=== PATIENT | female | born 1990 | race Caucasian/White ===

== ENCOUNTER 2019-07-31 14:53 | Emergency (ER) | payer SELFPAY ==
[2019-07-31 14:56] VITALS: BP 160/86; PULSE 112; RESP 18; TEMP 36.6; O2SAT 97; BMI 51.7
--- NOTE | 2019-07-31 15:04 | ED_ITS ---
Entered by Jil Telles, acting as scribe for Raissa Simpson HPI - Abdominal Pain General: Chief Complaint: Abdominal Pain Stated Complaint: ABD PAIN Time Seen by Provider: 07/31/19 15:04 Source: patient Mode of arrival: ambulatory Limitations: no limitations History of Present Illness: HPI narrative: 29 yo Female presents to ED with complaint of upper abdominal pain. Pt states that the pain started on the right side of her abdomen and shot across to the left side and into her chest. Pt states that she was eating pizza when this pain started and she is now na useated. Pt states that she has had episodes like this in the past but not consistently. Pt states she isn't really having the pain anymore but she has nausea. MD elicited complaint: abdominal pain Pertinent past history: none Onset (ago): hour(s) Pain Consistency: intermittent and now resolved Location: RUQ Pain scale (0-10): 2 Quality: sharp Radiation: LUQ and chest Migration to: no migration Exacerbating factors: eating Associated Symptoms: Reports nausea; Denies chills, constipation, diarrhea, dysuria, fever(s), hematuria, syncope and vomiting Review of Systems General: Reports: other (negative unless marked) Const: Denies: fever or chills Eyes: Denies: change in vision or blurry vision ENMT: Denies: throat pain, painful swallowing, hoarseness, ear pain, ear discharge, Change in hearing or nasal discharge Card: Denies: chest pain, palpitations, irregular heart rhythm, syncope, pre- syncope, shortness of breath on exertion or shortness of breath when lying down Resp: Denies: shortness of breath, productive cough, non-productive cough, wheezing, coughing up blood or chest congestion GI: Reports: abdominal pain and nausea; Denies: vomiting, diarrhea or constipation : Denies: painful urination or blood in urine Musc: Denies: neck pain, back pain, extremity pain, extremity swelling, joint pain, joint swelling, joint warmth or joint stiffness Skin/Breast: Denies: rash, skin tenderness or yellow skin Neuro: Denies: headache, numbness in extremities, weakness in extremities, changes in sensation, lack of coordination, difficulty walking, dizziness, vertigo or confusion Endo: Denies: excessive thirst, tired all the time, cold intolerance, excessive sweating, flushing or hot flashes Noah/Lymph: Denies: easy bruising, easy bleeding, petechiae or enlarged lymph nodes All/Imm: Denies: hives, throat swelling, tongue swelling, facial swelling or acute wheezing PFSH ED PFSH: Social History Smoking and tobacco status: never smoked Physical Exam Const: COMMON NORMALS: no apparent distress, oriented x3, no limitations, healthy appearing and well nourished EXAM LIMITATIONS: no altered mental status GENERAL APPEARANCE: cooperative, well kempt and well developed NUTRITIONAL APPEARANCE: obese morbidly obese ORIENTATION/CONSCIOUSNESS: Yes awake HENMT: COMMON NORMALS: normocephalic, head/scalp atraumatic, hearing grossly normal bilaterally, external ears normal, EAC's normal, external nose normal and moist oral mucous membranes HEAD & SCALP: normal to inspection, normocephalic and atraumatic FACE & SINUS: normal facial exam and face symmetric NOSE: external nose normal and nares normal EXTERNAL EAR: Yes external ears normal EXTERNAL AUDITORY CANAL: EAC's normal MOUTH: oral and palatal mucosa normal and tongue normal Eye: COMMON NORMALS: PERRL, EOMs intact bilaterally, conjunctivae normal and no scleral icterus GENERAL EYE: normal appearance of both eyes and normal light reflex CONJUNCTIVA: Yes conjunctivae normal SCLERA: sclerae normal CORNEA: Yes corneas normal PUPIL: Yes PERRL DIRECT OPHTHALMOSCOPY: Yes normal light reflex Neck/C-Spine: COMMON NORMALS: full ROM, no lymphadenopathy, supple, no meningeal signs and no JVD GENERAL: Yes normal visual inspection and Yes trachea midline CERVICAL SPINE: Yes cervical ROM normal Chest: COMMONS NORMALS: inspection of chest normal and palpation of chest normal Resp: COMMON NORMALS: normal respiratory effort, no retractions, no use of accessory muscles and clear to auscultation bilaterally EFFORT & INSPECTION: Yes able to speak in complete sentences AUSCULTATION: clear to auscultation bilaterally Cardio: COMMON NORMALS: no JVD, regular rate, regular rhythm, S1 normal heart sound, S2 normal heart sound, no gallops, no clicks, no murmurs and no rub JUGULAR VENOUS DISTENTION: no JVD RATE: regular rate RHYTHM: regular rhythm HEART SOUNDS: S1 normal and S2 normal GI: COMMON NORMALS: soft to palpation, non-tender, no hepatosplenomegaly and no masses INSPECTION: Yes normal to inspection PALPATION: Yes soft and Yes no hepatosplenomegaly : COMMON NORMALS: Yes no CVA tenderness BLADDER/KIDNEY EXAM: Yes no CVA tenderness Back/Pelvis: COMMON NORMALS: no CVA tenderness, thoracic and lumbar spine normal to inspection, no thoracic nor lumbar tenderness and thoraco-lumbar ROM normal Extremity: COMMON NORMALS: normal to inspection, full ROM, normal capillary refill, no joint enlargement, no clubbing, cyanosis or edema and no calf tenderness Neuro: COMMON NORMALS: oriented x3, CN's II-XII intact bilaterally, moves all extremities, no focal motor deficits and no sensory deficits noted MENINGEAL SIGNS: Yes no meningeal signs Psych: COMMON NORMALS: mental status grossly normal, thought process normal, cooperative, affect normal, speech normal and activity/motor behavior normal APPEARANCE: Yes well kempt SPEECH: Yes normal speech THOUGHT PROCESS: normal thought process Skin: COMMON NORMALS: no rashes or lesions noted, skin turgor normal, no jaundice, no petechiae and no mottling GENERAL SKIN EXAM: no rashes or lesions noted and turgor normal Course Vital Signs: Vital signs: Vital Signs Temperature 97.8 F 07/31/19 14:56 Pulse Rate 85 07/31/19 17:45 Respiratory Rate 20 H 07/31/19 17:45 Blood Pressure 145/87 07/31/19 17:45 Pulse Oximetry 97 07/31/19 17:45 MDM - Abdominal Pain MDM Narrative: Medical decision making narrative: Anita is a nice 29-year-old female who comes in complaining of right and left upper quadrant pain after eat ing. She has gallstones and a fatty liver but her ultrasound is otherwise unremarkable. I believe this is likely biliary colic. Patient symptoms have resolved and she wants to go home. Her urine does have blood in it but she is on her menses. I will go and cover for UTI although I think this is unlikely. I see no evidence of kidney stone as she has no back or flank pain that radiates to the groin. Patient agrees to return should her symptoms change or worsen otherwise she wants to follow-up with Dr. Sewell or another surgeon as an outpatient for further evaluation and possible cholecystectomy. Lab Data: Labs: Lab Results 07/31/19 07/31/19 07/31/19 Range/Units 15:26 15:26 15:26 WBC 10.1 H (4.0-10.0) 10^3/ uL RBC 5.24 (4.1-5.3) 10^6/u L Hgb 13.5 (11.5-15.3) g/dL Hct 44.0 (37.0-47.0) % MCV 84.0 (81-99) fL MCH 25.8 L (28.0-34.0) pg MCHC 30.7 (30.0-36.0) g/dL RDW 14.8 (12.1-15.1) % Plt Count 280 (130-400) 10^3/c mm MPV 9.9 (7.4-10.4) fL Neut % (Auto) 78.1 % Lymph % (Auto) 13.3 % [place] % (Auto) 6.7 % Eos % (Auto) 1.0 % Baso % (Auto) 0.4 % Neut # (Auto) 7.9 H (1.8-7.7) 10^3/u L Lymph # (Auto) 1.3 (0.8-4.8) 10^3/u L [place] # (Auto) 0.7 (0.2-0.9) 10^3/u L Eos # (Auto) 0.1 (0.0-0.8) 10^3/u L Baso # (Auto) 0.0 (0.0-0.1) 10^3/u L Nucleated RBC % (a uto) 0 % Nucleated RBCs # 0.0 /100WBC Sodium 137 (136-145) mmol/L Potassium 4.0 (3.5-5.1) mmol/L Chloride 99 (98-107) mmol/L Carbon Dioxide 25 (22-29) mmol/L Anion Gap 17.0 (5-19) BUN 15 (6-20) mg/dL Creatinine 0.8 (0.5-0.9) mg/dL GFR Calculation 84.8 L (90-130) mL/min Glucose 115 (65-115) mg/dL Calculated Osmolal ity 281 L (285-295) mOsm/k g Calcium 9.8 (8.5-10.5) mg/dL Total Bilirubin 0.5 (0.15-1.2) mg/dL AST 59 H (0-32) U/L ALT 52 H (0-33) U/L Alkaline Phosphata se 97 (35-105) IU/L Total Protein 7.5 (6.6-8.7) g/dL Albumin 3.9 (3.5-5.2) g/dL Globulin 3.6 (1.3-4.6) g/dL Lipase 48 (13-60) U/L HCG, Qual Negative (Negative) Urine Color (Yellow) Urine Appearance (CLEAR) Urine pH (5-7) Ur Specific Gravit y (1.005-1.030) Urine Protein (Negative) Urine Glucose (UA) (Normal) Urine Ketones (Negative) Urine Blood (Negative) Urine Nitrate (Negative) Urine Bilirubin (NEGATIVE) Urine Urobilinogen (Negative) mg/dL Ur Leukocyte Franca ase (Negative) Urine RBC (0-2) /hpf Urine WBC (0-5) /hpf Ur Squamous Epith Cells (0-5) Urine Bacteria (NONE) 07/31/19 Range/Units 16:37 WBC (4.0-10.0) 10^3/ uL RBC (4.1-5.3) 10^6/u L Hgb (11.5-15.3) g/dL Hct (37.0-47.0) % MCV (81-99) fL MCH (28.0-34.0) pg MCHC (30.0-36.0) g/dL RDW (12.1-15.1) % Plt Count (130-400) 10^3/c mm MPV (7.4-10.4) fL Neut % (Auto) % Lymph % (Auto) % [place] % (Auto) % Eos % (Auto) % Baso % (Auto) % Neut # (Auto) (1.8-7.7) 10^3/u L Lymph # (Auto) (0.8-4.8) 10^3/u L [place] # (Auto) (0.2-0.9) 10^3/u L Eos # (Auto) (0.0-0.8) 10^3/u L Baso # (Auto) (0.0-0.1) 10^3/u L Nucleated RBC % (a uto) % Nucleated RBCs # /100WBC Sodium (136-145) mmol/L Potassium (3.5-5.1) mmol/L Chloride (98-107) mmol/L Carbon Dioxide (22-29) mmol/L Anion Gap (5-19) BUN (6-20) mg/dL Creatinine (0.5-0.9) mg/dL GFR Calculation (90-130) mL/min Glucose (65-115) mg/dL Calculated Osmolal ity (285-295) mOsm/k g Calcium (8.5-10.5) mg/dL Total Bilirubin (0.15-1.2) mg/dL AST (0-32) U/L ALT (0-33) U/L Alkaline Phosphata se (35-105) IU/L Total Protein (6.6-8.7) g/dL Albumin (3.5-5.2) g/dL Globulin (1.3-4.6) g/dL Lipase (13-60) U/L HCG, Qual (Negative) Urine Color Yellow (Yellow) Urine Appearance Cloudy (CLEAR) Urine pH 6 (5-7) Ur Specific Gravit y 1.030 (1.005-1.030) Urine Protein Neg (Negative) Urine Glucose (UA) Norm (Normal) Urine Ketones Negative (Negative) Urine Blood 3+ H (Negative) Urine Nitrate Negative (Negative) Urine Bilirubin Neg (NEGATIVE) Urine Urobilinogen 2 H (Negative) mg/dL Ur Leukocyte Franca ase Negative (Negative) Urine RBC Too numerous to c nt H (0-2) /hpf Urine WBC 0-4 H (0-5) /hpf Ur Squamous Epith Cells 25-40 H (0-5) Urine Bacteria 1+ H (NONE) Discharge Plan Discharge Patient Disposition: Home, Self-Care Clinical Impression: Abdominal pain Qualifiers: Abdominal location: upper abdomen, unspecified Qualified Code(s): R10.10 - Upper abdominal pain, unspecified UTI (urinary tract infection) Qualifiers: Urinary tract infection type: acute cystitis Hematuria presence: with hematuria Qualified Code(s): N30.01 - Acute cystitis with hematuria Condition: Stable Prescriptions: New Keflex 500 mg capsule 500 mg PO QID 10 Days Qty: 40 RF: 0 No Action Zyrtec 10 mg Tablet 10 mg PO DAILY PRN (Reason: ALLERGIES) RF: 0 Discharge Orders: Discharge Order (Routine); Ordered 07/31/19 Ordered By: Raissa Simpson Referrals: Petty Edgar FNP [Family Provider] - 1-3 days Sanchez Sewell MD [Physician] - 1-3 days Jose Kearns FNP [Primary Care Provider] - Discharge Diet: Advance as tolerated Discharge Activity: Increase activity as tolerated Patient Instructions: Cholecystitis (ED), Urinary Tract Infection in Women (ED), Abdominal Pain (ED) Activity Restrictions/Additional Instructions: Please return to the ER immediately for any of the signs or symptoms listed on your discharge instruction sheets, worsening/changing of your symptoms, you are not getting better as quickly as expected, or for ANY other cause or concerns. Discharge Date/Time: 07/31/19 17:46 Coding Level of Care Code ED Toll Testboard Worker for Chg Fwd Exam Comprehensive The documentation recorded by the Koki mercer Carmen, accurately reflects the service I personally performed and the decisions made by Tatiana gomez Eli N Jul 31, 2019 14:53
--- NOTE | 2019-07-31 15:09 | US_ITS ---
WS: [id number] Complete ABDOMINAL ULTRASOUND HISTORY: Abdominal Pain COMPARISON: None. Study is limited by body habitus and gastrointestinal content. Liver: 18.6 cm in length. Liver is moderately enlarged with coarsened echotexture from hepatic steato sis. No mass or bile duct dilatation. Gallbladder: Normally distended gallbladder with numerous stones. No pericholecystic fluid. Gallbladder wall thickness: 0.2 cm. Pancreas: Completely obscured by bowel gas. CBD: 0.5 cm. Right kidney: 12.6 cm x 6.3 cm x 4.8 cm. No mass, cortical thickening or hydronephrosis. Left kidney: 12.6 cm x 4.5 cm x 7.1 cm. No mass, cortical thickening or hydronephrosis. Spleen: Normal size and echogenicity. Abdominal aorta is not well visualized. Normal IVC. No ascites. US/US abdomen complete* [id number] IMPRESSION: 1. Technically difficult evaluation. 2. Cholelithiasis without acute cholecystitis. 3. No bile duct dilatation. 4. Moderate hepatic steatosis and hepatomegaly.
[2019-07-31 15:41] LABS: Basophils % 0.4 %; Eosinophils # 0.1 10^3/uL (0.0-0.8); Hemoglobin 13.5 g/dL (11.5-15.3); Lymphocytes # 1.3 10^3/uL (0.8-4.8); Lymphocytes % 13.3 %; Mean Corpuscular HGB Conc 30.7 g/dL (30.0-36.0); Mean Corpuscular Hemoglobin 25.8 pg (28.0-34.0); Mean Platelet Volume 9.9 fL (7.4-10.4); Monocytes # 0.7 10^3/uL (0.2-0.9); Monocytes % 6.7 %; Neutrophils # 7.9 10^3/uL (1.8-7.7); Neutrophils % 78.1 %; Nucleated Red Blood Cells % 0 %; Platelet Count 280 10^3/cmm (130-400); Red Blood Count 5.24 10^6/uL (4.1-5.3); Red Cell Distribution Width 14.8 % (12.1-15.1); White Blood Count 10.1 10^3/uL (4.0-10.0)
[2019-07-31 15:52] LABS: Alanine Aminotransferase 52 U/L (0-33); Albumin Level 3.9 g/dL (3.5-5.2); Alkaline Phosphatase 97 IU/L (35-105); Aspartate Amino Transferase 59 U/L (0-32); Blood Urea Nitrogen 15 mg/dL (6-20); Calcium 9.8 mg/dL (8.5-10.5); Carbon Dioxide 25 mmol/L (22-29); Chloride 99 mmol/L (98-107); Globulin 3.6 g/dL (1.3-4.6); Glomerular Filtration Rate 84.8 mL/min (90-130); Glucose 115 mg/dL (65-115); Lipase 48 U/L (13-60); Osmolality Calculated 281 mOsm/kg (285-295); Sodium 137 mmol/L (136-145); Total Bilirubin 0.5 mg/dL (0.15-1.2); Total Protein 7.5 g/dL (6.6-8.7)
[2019-07-31] MEDS: sodium chloride 0.9% 1,000 ML 999 ML IV (15:59)
[2019-07-31] MEDS: ondansetron 2 mg/ML SDV 2 mL 4 MG IVP (15:59)
[2019-07-31] MEDS: morphine 4 mg/mL SDV 1 mL IVP (15:59)
[2019-07-31 16:05] VITALS: O2SAT 98
[2019-07-31 16:20] LABS: HCG, Serum Qual Negative (Negative)
[2019-07-31 17:05] LABS: Glucose Urine UA Norm (Normal); Ketones Urine Negative (Negative); Protein Urine Neg (Negative); Urine Appearance Cloudy (CLEAR); Urine Color Yellow (Yellow); pH Urine 6 (5-7)
[2019-07-31 17:06] LABS: Bilirubin Urine Neg (NEGATIVE); Blood Urine 3+ (Negative); Leukocyte Esterase Urine Negative (Negative); Nitrate Urine Negative (Negative); Urobilinogen Urine 2 mg/dL (Negative)
[2019-07-31 17:09] LABS: Add Urine Culture? No; Bacteria Urine 1+; RBC Urine TOO NUMEROUS TO CNT /hpf (0-2); Squamous Epithelial Cell Urine 25-40 (0-5); WBC Urine 0-4 /hpf (0-5)
[2019-07-31] MEDS: cefTRIAXone 1,000 MG in sodium chloride 0.9% (plus) 50 ML 100 MG IV (17:28)
[2019-07-31 17:45] VITALS: BP 145/87; PULSE 85; RESP 20; O2SAT 97
--- NOTE | 2019-08-01 14:44 | DCPLANNER ---
team manager had message to schedule a follow up appointment for patient with [facility]. team manager called the clinic, spoke with Sahara. A follow up appointment is scheduled for July at 12:[address] Mccabe. Clinic will call clinic with appointment information.
--- NOTE | 2019-08-05 12:40 | DCPLANNER ---
Patient did not attend appointment scheduled for 08.04.19 with [facility].
== END 2019-07-31 17:46 | disposition home or self-care (01) ==
PROVIDERS: Emergency Provider Emergency Medicine; Family Provider Nurse Practitioner Family; PCP Nurse Practitioner Family
DX: R10.9 Unspecified abdominal pain (principal); N39.0 Urinary tract infection, site not specified; E66.09 Other obesity due to excess calories; Z68.43 Body mass index [BMI] 50.0-59.9, adult
CPT/HCPCS: 12345; 36415; 76700; 80053; 81001; 83690; 84703; 85025; 96365; 96374; 96375; 99283; J0696; J2270; J2405; J7030

== ENCOUNTER → 2019-08-02 20:40 | Outpatient (BNVA) | payer BC, SELFPAY | PROVIDERS: Family Provider Nurse Practitioner Family; PCP Nurse Practitioner Family; Visit Provider Registered Nurse | DX: K81.9 Cholecystitis, unspecified (principal); N30.01 Acute cystitis with hematuria | CPT/HCPCS: 81000 ==

== ENCOUNTER 2019-10-14 07:45 | Emergency (ER) | payer BC, SELFPAY ==
[2019-10-14 07:52] VITALS: BP 156/89; PULSE 91; RESP 18; TEMP 36.6; O2SAT 98; BMI 58.8
--- NOTE | 2019-10-14 07:53 | ED_ITS ---
HPI - Abdominal Pain General: Chief Complaint: Abdominal Pain Stated Complaint: ABD PAIN/gallbladder issues Time Seen by Provider: 10/14/19 07:53 Source: patient Mode of arrival: ambulatory Limitations: no limitations History of Present Illness: HPI narrative: Patient is a 29-year-old female who presents to ED today with a complaint of abdominal pain. Patient states she has had intermittent right upper quadrant pains over the past few months and was told it was her gallbladder. She is scheduled to have a cholecystectomy in November in [place]. She states on previous gallbladder attacks pain is been localized to her right upper quadrant with radiation into her chest however pain today seems to be more diffuse and extending across her abdomen into the left side. She states she has been burping all morning. Has had one episode of vomit. She states bowel movements and urinary habits have been normal. No fevers. MD elicited complaint: abdominal pain Pertinent past history: other (gallstones) Onset (ago): hour(s) Associated Symptoms: Reports belching and vomiting; Denies change in bowel habits, change in stool character, chills, coffee ground emesis, diarrhea, dysuria, fever(s), heartburn, hematochezia, hematemesis, melena, nausea and syncope Review of Systems General: Reports: 10 or more systems reviewed and unremarkable except in HPI and below Const: Denies: fever(s) or chills Card: Reports: chest pain; Denies: palpitations, irregular heart rhythm, edema, swelling of feet/ankles, lightheadedness, syncope, pre-syncope, dyspnea on exertion, orthopnea or leg pain with exertion Resp: Denies: dyspnea, productive cough, pain on inspiration or chest congestion GI: Reports: abdominal pain, vomiting and belching; Denies: nausea, hematemesis, coffee ground emesis, dysphagia, heartburn, diarrhea, change in bowel habits, pain on defecation, change in stool character, hematochezia, melena, mucus in stool or white/light colored stool : Denies: flank pain, difficulty voiding, dysuria, urinary frequency, urinary urgency or urinary hesitancy Musc: Denies: neck pain, back pain or joint pain Skin/Breast: Denies: rash Neuro: Denies: headache(s), numbness in extremities, weakness in extremities or sensory changes PFSH ED PFSH: Social History Smoking and tobacco status: never smoked Physical Exam Const: COMMON NORMALS: no acute distress, patient oriented x3, no limitations and alert NUTRITIONAL APPEARANCE: obese morbidly obese HENMT: COMMON NORMALS: normocephalic and atraumatic HEAD & SCALP: normocephalic and atraumatic Chest: COMMONS NORMALS: normal inspection of the chest and normal palpation of entire chest wall Resp: COMMON NORMALS: normal respiratory effort and clear to auscultation bilaterally AUSCULTATION: clear to auscultation bilaterally Cardio: COMMON NORMALS: regular rate and regular rhythm RATE: regular rate RHYTHM: regular rhythm GI: COMMON NORMALS: Soft to palpation AUSCULTATION: Yes normoactive bowel sounds PALPATION: Yes Soft to palpation and Yes Tenderness to palpation present (GI) (throughout abdomen but more so across top ) OTHER: exam limited due to patient's morbid obesity : COMMON NORMALS: Yes no CVA tenderness BLADDER/KIDNEY EXAM: Yes no CVA tenderness Back/Pelvis: COMMON NORMALS: no CVA tenderness Extremity: COMMON NORMALS: normal to inspection Neuro: COMMON NORMALS: patient oriented x3 SENSORIUM/ORIENTATION: Yes alert Skin: COMMON NORMALS: no rashes or lesions noted GENERAL SKIN EXAM: no rashes or lesions noted Course Consultations: Consultation #1: Dr. Laurent[facility] hospitalist who agrees to directly admit the patient. Transfer line spoke to HAZEL Tsai who assured him they have capability for ERCP and would consult on patient once she arrives. Vital Signs: Vital signs: Vital Signs Temperature 97.8 F 10/14/19 07:52 Pulse Rate 91 10/14/19 07:52 Respiratory Rate 18 10/14/19 09:57 Blood Pressure 156/89 10/14/19 07:52 Pulse Oximetry 98 10/14/19 07:52 MDM - Abdominal Pain MDM Narrative: Medical decision making narrative: Spoke to Dr. Crowley who agrees with plan to transfer patient. Patient here with elevated LFTs and a lipase of over 5000. She has a normal bili. She does have cholelithiasis and a thickened gallbladder wall. There was no visualized in her CBD however given her abnormal lipase patient most likely will require an ERCP. I spoke to Rita in [place] who will direct admit the patient and GI will consult. Lab Data: Labs: Lab Results 10/14/19 10/14/19 10/14/19 Range/Units 08:30 08:30 09:50 WBC (4.0-10.0) 10^3/ uL RBC (4.1-5.3) 10^6/u L Hgb (11.5-15.3) g/dL Hct (37.0-47.0) % MCV (81-99) fL MCH (28.0-34.0) pg MCHC (30.0-36.0) g/dL RDW (12.1-15.1) % Plt Count (130-400) 10^3/c mm MPV (7.4-10.4) fL Neut % (Auto) % Lymph % (Auto) % [place] % (Auto) % Eos % (Auto) % Baso % (Auto) % Neut # (Auto) (1.8-7.7) 10^3/u L Lymph # (Auto) (0.8-4.8) 10^3/u L [place] # (Auto) (0.2-0.9) 10^3/u L Eos # (Auto) (0.0-0.8) 10^3/u L Baso # (Auto) (0.0-0.1) 10^3/u L Nucleated RBC % (a uto) % Nucleated RBCs # /100WBC Sodium 139 (136-145) mmol/L Potassium 4.4 (3.5-5.1) mmol/L Chloride 102 (98-107) mmol/L Carbon Dioxide 22 (22-29) mmol/L Anion Gap 19.4 H (5-19) BUN 14 (6-20) mg/dL Creatinine 0.6 (0.5-0.9) mg/dL GFR Calculation 118.2 (90-130) mL/min Glucose 150 H (65-115) mg/dL Calculated Osmolal ity 287 (285-295) mOsm/k g Calcium 9.6 (8.5-10.5) mg/dL Total Bilirubin 1.2 (0.15-1.2) mg/dL AST 242 H (0-32) U/L ALT 221 H (0-33) U/L Alkaline Phosphata se 106 H (35-105) IU/L Total Protein 6.5 L (6.6-8.7) g/dL Albumin 3.8 (3.5-5.2) g/dL Globulin 2.7 (1.3-4.6) g/dL Lipase > 5097 H (13-60) U/L HCG, Qual Negative (Negative) Urine Color Yellow (Yellow) Urine Appearance Clear (CLEAR) Urine pH 5 (5-7) Ur Specific Gravit y 1.015 (1.005-1.030) Urine Protein Neg (Negative) Urine Glucose (UA) Norm (Normal) Urine Ketones Negative (Negative) Urine Blood Trace H (Negative) Urine Nitrate Negative (Negative) Urine Bilirubin 1+ H (NEGATIVE) Urine Urobilinogen 4 H (Negative) mg/dL Ur Leukocyte Franca ase Negative (Negative) Urine RBC 5-10 H (0-2) /hpf Urine WBC Rare (0-5) /hpf Ur Squamous Epith Cells 5-10 H (0-5) Urine Bacteria 1+ H (NONE) 10/14/19 Range/Units 09:53 WBC 12.4 H (4.0-10.0) 10^3/ uL RBC 4.78 (4.1-5.3) 10^6/u L Hgb 12.4 (11.5-15.3) g/dL Hct 38.8 (37.0-47.0) % MCV 81.2 (81-99) fL MCH 25.9 L (28.0-34.0) pg MCHC 32.0 (30.0-36.0) g/dL RDW 14.8 (12.1-15.1) % Plt Count 185 (130-400) 10^3/c mm MPV 10.5 H (7.4-10.4) fL Neut % (Auto) 82.5 % Lymph % (Auto) 9.0 % [place] % (Auto) 6.2 % Eos % (Auto) 0.8 % Baso % (Auto) 0.4 % Neut # (Auto) 10.2 H (1.8-7.7) 10^3/u L Lymph # (Auto) 1.1 (0.8-4.8) 10^3/u L [place] # (Auto) 0.8 (0.2-0.9) 10^3/u L Eos # (Auto) 0.1 (0.0-0.8) 10^3/u L Baso # (Auto) 0.1 (0.0-0.1) 10^3/u L Nucleated RBC % (a uto) 0 % Nucleated RBCs # 0.0 /100WBC Sodium (136-145) mmol/L Potassium (3.5-5.1) mmol/L Chloride (98-107) mmol/L Carbon Dioxide (22-29) mmol/L Anion Gap (5-19) BUN (6-20) mg/dL Creatinine (0.5-0.9) mg/dL GFR Calculation (90-130) mL/min Glucose (65-115) mg/dL Calculated Osmolal ity (285-295) mOsm/k g Calcium (8.5-10.5) mg/dL Total Bilirubin (0.15-1.2) mg/dL AST (0-32) U/L ALT (0-33) U/L Alkaline Phosphata se (35-105) IU/L Total Protein (6.6-8.7) g/dL Albumin (3.5-5.2) g/dL Globulin (1.3-4.6) g/dL Lipase (13-60) U/L HCG, Qual (Negative) Urine Color (Yellow) Urine Appearance (CLEAR) Urine pH (5-7) Ur Specific Gravit y (1.005-1.030) Urine Protein (Negative) Urine Glucose (UA) (Normal) Urine Ketones (Negative) Urine Blood (Negative) Urine Nitrate (Negative) Urine Bilirubin (NEGATIVE) Urine Urobilinogen (Negative) mg/dL Ur Leukocyte Franca ase (Negative) Urine RBC (0-2) /hpf Urine WBC (0-5) /hpf Ur Squamous Epith Cells (0-5) Urine Bacteria (NONE) Imaging Data ^: CT Abd/Pel: Radiologist's impression: [address] [address] [address] Scan Report Signed Patient: Meme Reynoso Unit #: [id number] : 1990 Age/Sex: 29 / F ADM Date: 10/14/19 Loc: ER Room/Bed: Attending Dr: Ordering Provider/Ordering MD: Mabel Wyman Date of Service: 10/14/19 Procedure(s): CT abdomen pelvis w con* [id number] Accession Number(s): [id number] Report Number: [id number] WS: [id number] CT ABDOMEN PELVIS TECHNIQUE: Contrast-enhanced CT of the abdomen and pelvis with coronal and sagittal reformatted images. CLINICAL INFORMATION: diffuse abdominal pain COMPARISON: None. DLP: 2254.[address] scans at [facility] use at least one of these dose optimization techniques: automated exposure control; mA and/or kV adjustment per patient size (includes targeted exams where dose is matched to clinical indication); or iterative reconstruction. FINDINGS: Mild diffuse fatty infiltration the liver. Gallbladder is contracted. Normal spleen. Normal GE junction. Slight atelectasis in the lung bases. Adrenal glands are normal. Normal renal parenchymal enhancement. No hydronephrosis. Small amount of fluid and edema along the pancreatic tail. Recommend correlation for pancreatitis. Normal caliber abdominal aorta. No free fluid in the pelvis. No evidence of small or large bowel obstruction. No abdominal or pelvic lymphadenopathy. CT/CT abdomen pelvis w con* [id number] IMPRESSION: 1. Small amount of fluid and edema along the pancreatic tail. Recommend correlation for pancreatitis. 2. No other significant findings. Dictated By: Tam Steinberg MD Signed By: Tam Steinberg MD Signed Date/Time: 10/14/19934 DD/ 7 US gallbladder: Radiologist's impression: [address] [address] Ultrasound Report Signed Patient: Meme Reynoso Unit #: [id number] : 1990 Age/Sex: 29 / F ADM Date: 10/14/19 Loc: ER Room/Bed: Attending Dr: Ordering Provider/Ordering MD: Mabel Wyman Date of Service: 10/14/19 Procedure(s): US gall bladder [id number] Accession Number(s): [id number] Report Number: [id number] WS: [id number] ULTRASOUND ABDOMEN LIMITED CLINICAL INFORMATION: RUQ pain; hx of stones COMPARISON: Ultrasound July 31, 2019 FINDINGS: Technically difficult examination Liver Size: Enlarged Craniocaudal length: 18.9 cm. Echogenicity: Fatty infiltration Surface nodularity: None. Mass (size and location): None. Bile ducts Intrahepatic ducts: Normal. Common bile duct diameter: 0.4 cm. Gallbladder Cholelithiasis. Gallbladder wall thickened measuring 5 mm. Pancreas Not well visualized Right kidney: Normal. Hydronephrosis: None. Size: 10.5 cm x 5.8 cm x 5.7 cm. Abdominal aorta and IVC Visualized portions are normal. Ascites: None. US/US gall bladder [id number] IMPRESSION: 1. Hepatomegaly with diffuse fatty infiltration. 2. Cholelithiasis with mild gallbladder wall thickening. Gallbladder is contracted. Normal visualized common bile duct. No pericholecystic fluid. Dictated By: Tam Steinberg MD Signed By: Tam Steinberg MD Signed Date/Time: 10/14/19937 DD/ 4 Discharge Plan Discharge Patient Disposition: Xfer Other Clinical Impression: Acute gallstone pancreatitis Cholelithiasis Qualifiers: Cholelithiasis location: gallbladder Cholecystitis presence: without cholecystitis Biliary obstruction: with biliary obstruction Qualified Code(s): K80.21 - Calculus of gallbladder without cholecystitis with obstruction Condition: Stable Coding Level of Care Code ED Sterilizer Machine Operator for Chg Fwd Exam Comprehensive
--- NOTE | 2019-10-14 08:00 | CT_ITS ---
WS: [id number] CT ABDOMEN PELVIS TECHNIQUE: Contrast-enhanced CT of the abdomen and pelvis with coronal and sagittal reformatted image s. CLINICAL INFORMATION: diffuse abdominal pain COMPARISON: None. DLP: 2254.[address] scans at [facility] use at least one of these dose optimization techniques: automat ed exposure control; mA and/or kV adjustment per patient size (includes targeted exams where dose is matched to clinical indication); or iterative reconstruction. FINDINGS: Mild diffuse fatty infiltration the liver. Gallbladder is contracted. Normal spleen. Normal GE juncti on. Slight atelectasis in the lung bases. Adrenal glands are normal. Normal renal parenchymal enhancement. No hydronephrosis. Small amount of f luid and edema along the pancreatic tail. Recommend correlation for pancreatitis. Normal caliber abdo marcelino aorta. No free fluid in the pelvis. No evidence of small or large bowel obstruction. No abdominal or pelvic lymphadenopathy. CT/CT abdomen pelvis w con* [id number] IMPRESSION: 1. Small amount of fluid and edema along the pancreatic tail. Recommend correl ation for pancreatitis. 2. No other significant findings.
--- NOTE | 2019-10-14 08:00 | US_ITS ---
WS: [id number] ULTRASOUND ABDOMEN LIMITED CLINICAL INFORMATION: RUQ pain; hx of stones COMPARISON: Ultrasound July 31, 2019 FINDINGS: Technically difficult examination Liver Size: Enlarged Craniocaudal length: 18.9 cm. Echogenicity: Fatty infiltration Surface nodularity: None. Mass (size and location): None. Bile ducts Intrahepatic ducts: Normal. Common bile duct diameter: 0.4 cm. Gallbladder Cholelithiasis. Gallbladder wall thickened measuring 5 mm. Pancreas Not well visualized Right kidney: Normal. Hydronephrosis: None. Size: 10.5 cm x 5.8 cm x 5.7 cm. Abdominal aorta and IVC Visualized portions are normal. Ascites: None. US/US gall bladder [id number] IMPRESSION: 1. Hepatomegaly with diffuse fatty infiltration. 2. Cholelithiasis with mild gallbladder wall thickening. Gallbladder is contra cted. Normal visualized common bile duct. No pericholecystic fluid.
[2019-10-14 08:49] LABS: HCG, Serum Qual Negative (Negative)
[2019-10-14 08:54] LABS: Alanine Aminotransferase 221 U/L (0-33); Albumin Level 3.8 g/dL (3.5-5.2); Alkaline Phosphatase 106 IU/L (35-105); Anion Gap 19.4 (5-19); Aspartate Amino Transferase 242 U/L (0-32); Blood Urea Nitrogen 14 mg/dL (6-20); Calcium 9.6 mg/dL (8.5-10.5); Carbon Dioxide 22 mmol/L (22-29); Chloride 102 mmol/L (98-107); Globulin 2.7 g/dL (1.3-4.6); Glomerular Filtration Rate 118.2 mL/min (90-130); Glucose 150 mg/dL (65-115); Osmolality Calculated 287 mOsm/kg (285-295); Potassium 4.4 mmol/L (3.5-5.1); Sodium 139 mmol/L (136-145); Total Bilirubin 1.2 mg/dL (0.15-1.2); Total Protein 6.5 g/dL (6.6-8.7)
[2019-10-14] MEDS: iohexol 300 mg/mL 100 mL Btl IV (09:01)
[2019-10-14] MEDS: ondansetron 2 mg/ML SDV 2 mL 4 MG IVP (09:32)
[2019-10-14 09:57] VITALS: RESP 18
[2019-10-14] MEDS: morphine 4 mg/mL SDV 1 mL IVP ×2 (09:57→15:51)
[2019-10-14 10:00] LABS: Basophils # 0.1 10^3/uL (0.0-0.1); Basophils % 0.4 %; Eosinophils # 0.1 10^3/uL (0.0-0.8); Eosinophils % 0.8 %; Hematocrit 38.8 % (37.0-47.0); Hemoglobin 12.4 g/dL (11.5-15.3); Lymphocytes # 1.1 10^3/uL (0.8-4.8); Mean Corpuscular Hemoglobin 25.9 pg (28.0-34.0); Mean Corpuscular Volume 81.2 fL (81-99); Mean Platelet Volume 10.5 fL (7.4-10.4); Monocytes # 0.8 10^3/uL (0.2-0.9); Monocytes % 6.2 %; Neutrophils # 10.2 10^3/uL (1.8-7.7); Neutrophils % 82.5 %; Nucleated Red Blood Cells % 0 %; Platelet Count 185 10^3/cmm (130-400); Red Blood Count 4.78 10^6/uL (4.1-5.3); Red Cell Distribution Width 14.8 % (12.1-15.1); White Blood Count 12.4 10^3/uL (4.0-10.0)
[2019-10-14 10:12] LABS: Specific Gravity, Urine 1.015 (1.005-1.030); Urine Appearance Clear (CLEAR); Urine Color Yellow (Yellow); pH Urine 5 (5-7)
[2019-10-14 10:13] LABS: Add Urine Microscopic? YES; Bilirubin Urine 1+ (NEGATIVE); Blood Urine Trace (Negative); Glucose Urine UA Norm (Normal); Ketones Urine Negative (Negative); Leukocyte Esterase Urine Negative (Negative); Nitrate Urine Negative (Negative); Protein Urine Neg (Negative); Urobilinogen Urine 4 mg/dL (Negative)
[2019-10-14 10:15] LABS: Slide Review Slide Review Perform
[2019-10-14 10:18] LABS: Add Urine Culture? No; Bacteria Urine 1+; WBC Urine RARE /hpf (0-5)
[2019-10-14 14:00] VITALS: BP 137/107; PULSE 82; RESP 18; O2SAT 98
[2019-10-14 14:27] VITALS: BP 142/76; PULSE 80; RESP 18; O2SAT 96
[2019-10-14 15:51] VITALS: RESP 18; O2SAT 98
== END 2019-10-14 15:55 | disposition other institution (70) ==
PROVIDERS: Emergency Provider Physician Assistant
DX: K85.10 Biliary acute pancreatitis without necrosis or infection (principal); K80.21 Calculus of gallbladder without cholecystitis with obstruction
CPT/HCPCS: 12345; 36415; 36416; 74177; 76705; 80053; 81001; 83690; 84703; 85025; 96374; 96375; 96376; 99283; J2270; J2405; Q9967

== ENCOUNTER → 2022-05-02 10:18 | Outpatient (BNVA) | payer BC, SELFPAY | PROVIDERS: Visit Provider Registered Nurse | DX: E53.8 Deficiency of other specified B group vitamins (principal); R73.03 Prediabetes; L68.0 Hirsutism; I10 Essential (primary) hypertension | CPT/HCPCS: 80053; 82607; 84146; 84403; 84443; 85025 ==

== ENCOUNTER → 2022-05-06 08:39 | Outpatient (BNVA) | payer BC, SELFPAY | PROVIDERS: PCP Registered Nurse; Visit Provider Registered Nurse | DX: E53.8 Deficiency of other specified B group vitamins (principal); R73.03 Prediabetes; L68.0 Hirsutism; I10 Essential (primary) hypertension | CPT/HCPCS: 83036; 85025 ==

== ENCOUNTER → 2022-09-17 08:09 | Outpatient (BNVA) | payer BC, SELFPAY | PROVIDERS: PCP Registered Nurse; Visit Provider Registered Nurse | DX: Z91.014 Allergy to mammalian meats (principal) | CPT/HCPCS: 86003; 86008 ==

== ENCOUNTER 2022-09-19 18:58 | Emergency (ER) | payer BC, SELFPAY ==
[2022-09-19 19:11] VITALS: BP 135/88; PULSE 89; RESP 16; TEMP 36.4; O2SAT 98; BMI 54.5
--- NOTE | 2022-09-19 20:03 | W.ED.ALLEREA ---
HPI - Allergic Reaction General: Chief complaint: Allergic Reaction Stated complaint: allergic rxn, hives, cramps Time Seen by Provider: 09/19/22 19:23 History of Present Illness: HPI narrative: 32-year-old female presents emergency department chief complaint of having allergic reaction patient reports over the last couple of weeks she is being currently worked up for alpha gal she reports about 530 about 45 minutes after eating she developed hives shortness of breath wheezing in which she took a Benadryl as well as Pepcid as well as gave her epi injection patient remarks improvement of her symptoms she reports no current shortness of breath or difficulty breathing she reports that she is not eating any meat containing products due to being currently worked up reports was recently seen at [facility] for the same symptoms and on the last 1 week. Patient presents to the ER for further assessment and management. Currently patient does not endorse any throat tightness reports no wheezing shortness of breath palpitations chest pain or any other associated symptoms reports right after after the event she had a gross episode of nonbloody diarrhea and nausea. Associated symptoms: Reports abdominal pain; Deny facial swelling, nausea or vomiting Review of Systems General: Reports: 10 or more systems reviewed and unremarkable except in HPI and below Const: Denies: fever(s), chills, fatigue or malaise Eyes: Denies: change in vision or blurry vision Card: Denies: chest pain or palpitations Resp: Reports: dyspnea and wheezing; Denies: productive cough GI: Reports: abdominal pain and diarrhea; Denies: nausea or vomiting : Denies: flank pain Musc: Denies: extremity pain or extremity swelling Skin/Breast: Reports: rash and erythema; Denies: pruritus Neuro: Denies: headache(s) Psych: Denies: anxiety or depression Noah/Lymph: Denies: easy bleeding All/Imm: Denies: urticaria, throat swelling or facial swelling PFSH ED PFSH: Family History Grandfather Diabetes Hypertension Grandmother Hypothyroidism paternal Denies family history of CAD (coronary artery disease) Chronic kidney disease (CKD) Lung disease Cancer Stroke Social History Smoking and tobacco status: never smoked Alcohol intake: never Substance/Drug Use: never Adopted: No Caregiver/support person: No Lives independently: Yes service: No Current occupational status: employed Sexually active: Yes Do you think of yourself as: Straight/Heterosexual Current gender identity: Female Physical Exam Narrative: EXAM NARRATIVE: Patient currently appears nontoxic peers no obvious acute distress no active wheezing or stridor or rhonchi appreciated on exam no tachypnea no abdominal discomfort appreciated or any other concerning findings no obvious hives present Const: COMMON NORMALS: no acute distress, patient oriented x3 and healthy appearing HENMT: COMMON NORMALS: normocephalic and atraumatic HEAD & SCALP: normocephalic and atraumatic Eye: COMMON NORMALS: Equal, round and reactive pupils present and EOMs intact bilaterally PUPIL: Yes Equal, round and reactive pupils present Neck/C-Spine: COMMON NORMALS: full ROM, supple and no JVD Lymph: LYMPHATIC: no lymphadenopathy noted Chest: COMMONS NORMALS: normal inspection of the chest and normal palpation of entire chest wall Resp: COMMON NORMALS: normal respiratory effort, No retractions and clear to auscultation bilaterally EFFORT & INSPECTION: Yes able to speak in complete sentences and Yes symmetric chest movement AUSCULTATION: clear to auscultation bilaterally Cardio: COMMON NORMALS: no JVD, regular rate and regular rhythm RATE: regular rate RHYTHM: regular rhythm GI: COMMON NORMALS: Normal to inspection, nondistended, normoactive bowel sounds present, Soft to palpation and non-tender INSPECTION: Yes normal to inspection PALPATION: Yes Soft to palpation : COMMON NORMALS: Yes no CVA tenderness BLADDER/KIDNEY EXAM: Yes no CVA tenderness Back/Pelvis: COMMON NORMALS: no CVA tenderness Extremity: COMMON NORMALS: normal to inspection and full ROM Neuro: COMMON NORMALS: patient oriented x3, CN's II-XII intact bilaterally, moves all extremities and no focal motor deficits Psych: COMMON NORMALS: mental status grossly normal, Normal thought process present, cooperative and normal affect THOUGHT PROCESS: Normal thought process present Skin: COMMON NORMALS: no rashes or lesions noted GENERAL SKIN EXAM: no rashes or lesions noted Course Vital Signs: Vital signs: Vital Signs Temperature 97.5 F L 09/19/22 19:11 Pulse Rate 80 09/19/22 20:57 Respiratory Rate 25 H 09/19/22 20:57 Blood Pressure 126/77 09/19/22 20:57 Pulse Oximetry 100 09/19/22 20:57 Oxygen Delivery Me thod Room Air 09/19/22 20:57 MDM - Allergic Reaction Medical Decision Making We will continue to observe the patient for the next 2 hours, a dose of prednisone will be provided for constant monitoring if patient's symptoms continue to be resolved will be subsequent discharging her home on a steroid taper we will continue to follow Upon reevaluation patient has no recurrence of her symptoms she will be subsequent discharged home advised that she further follow-up with her primary care doctor for further allergy testing which advised her to return the interim if any of her symptoms persist or worse. Discharge Plan Discharge Patient Disposition: Home Clinical Impression: Allergic reaction Condition: Stable Prescriptions: New EpiPen 0.3 mg/0.3 mL auto-injector 0.3 mg IM Q10M PRN (Reason: allergic reaction) Qty: 2 0RF Rx Instructions: for 2 doses prednisone 10 mg tablets,dose pack 10 mg PO DIRECTED Qty: 25 0RF Rx Instructions: take 5 pills for 1 day, take 4 pills for 2 days, take 3 pills for 2 days, take 2 pills for 2 days, take 1 pill for 2 days No Action albuterol sulfate [ProAir HFA] 90 mcg/actuation HFA aerosol inhaler 2 puff INHALATION Q6H PRN (Reason: shortness of breath or wheezing) Qty: 8.5 0RF Mounjaro 5 mg/0.5 mL pen injector 5 mg SUBCUT .weekly 30 Days Qty: 2 0RF epinephrine [EpiPen 2-Philip] 0.3 mg/0.3 mL auto-injector 0.3 mg IM Q4H PRN (Reason: anaphylaxis) Qty: 2 0RF cyanocobalamin (vitamin B-12) 1,000 mcg/mL kit 1,000 mcg IM .monthy 30 Days Qty: 1 5RF hydrochlorothiazide 25 mg tablet 25 mg PO DAILY 90 Days Qty: 90 0RF cetirizine [Zyrtec] 10 mg Tablet 10 mg PO DAILY PRN (Reason: ALLERGIES) Discharge Orders: Discharge ED (Routine); Ordered 09/19/22 Ordered By: Portillo Mckoy Referrals: Gifty Villalobos, [employer] [Primary Care Provider] - 4-7 days Discharge Diet: As Directed Discharge Activity: Increase activity as tolerated Patient Instructions: Allergic Reaction, Urticaria (ED), Food Allergy (ED), Allergy Testing (ED) Activity Restrictions/Additional Instructions: Please further follow-up with your primary care doctor in the next 3 to 5 days, take the steroids as prescribed as well as continue taking Benadryl as well as your antihistamine. Please also keep a log of what you eat as well as certain activities to I could be contributing to your symptoms please return to the ER immediately if you develop any shortness of breath chest pain throat tightness or any other concerns. Coding Level of Care Code ED Fisher Mussel for Miles Sofia
[2022-09-19] MEDS: predniSONE 20 mg Tablet 60 MG PO (20:15)
[2022-09-19 20:57] VITALS: BP 126/77; PULSE 80; RESP 25; O2SAT 100
[2022-09-19 21:00] VITALS: BP 113/77; PULSE 85; RESP 21; O2SAT 100
[2022-09-19 23:00] VITALS: BP 140/89; PULSE 70; RESP 18; O2SAT 99
== END 2022-09-19 22:24 | disposition home or self-care (01) ==
PROVIDERS: Emergency Provider Emergency Medicine; PCP Registered Nurse
DX: T78.40XA Allergy, unspecified, initial encounter (principal); X58.XXXA Exposure to other specified factors, initial encounter
CPT/HCPCS: 99283; J7512

== ENCOUNTER 2023-01-26 08:55 | Emergency (ER) | payer BC, SELFPAY ==
[2023-01-26 09:16] VITALS: BP 136/83; PULSE 75; RESP 18; TEMP 36.7; O2SAT 100; BMI 47.2
[2023-01-26 09:20] VITALS: RESP 16
--- NOTE | 2023-01-26 11:18 | ED_ITS ---
HPI - Dental/Oral General: Chief complaint: Dental/Oral Stated complaint: mouth is hurting on the left side Time Seen by Provider: 01/26/23 08:58 Source: patient Mode of arrival: ambulatory Limitations: no limitations History of Present Illness: Patient is a 33-year-old female presents to ED today for evaluation and treatment of left-sided facial swelling. Patient states she had a tooth ache for a few days but states she woke up this morning with the left side of her face swollen. She is eating and drinking normally. She is not drooling and is controlling saliva. She denies neck swelling or neck pain. No fevers. Teeth map: 1. Onset (ago): day(s) Duration: constant Severity: moderate Context: history of dental caries Associated symptoms: Denies ear or mastoid pain, fever(s) or odynophagia Treatment prior to arrival: other (garlic) Review of Systems Const: Denies: fever(s), chills, body aches, fatigue or malaise ENMT: Reports: dental pain; Denies: throat pain, odynophagia, swelling of lips/tongue, oral sores, ear or mastoid pain, nasal discharge or nasal congestion Card: Denies: chest pain Resp: Denies: dyspnea GI: Denies: nausea or vomiting Musc: Denies: neck pain Skin/Breast: Denies: rash Neuro: Denies: headache(s) or dizziness PFSH ED PFSH: Family History Grandfather Diabetes Hypertension Grandmother Hypothyroidism paternal Denies family history of CAD (coronary artery disease) Chronic kidney disease (CKD) Lung disease Cancer Stroke Social History Smoking and tobacco status: never smoked Alcohol intake: never Substance/Drug Use: never Adopted: No Caregiver/support person: No Lives independently: Yes service: No Current occupational status: employed Sexually active: Yes Do you think of yourself as: Straight/Heterosexual Current gender identity: Female Physical Exam Const: COMMON NORMALS: no acute distress, patient oriented x3, no limitations, alert and well nourished NUTRITIONAL APPEARANCE: obese morbidly obese ORIENTATION/CONSCIOUSNESS: Yes awake, Yes oriented to person, Yes oriented to place and Yes oriented to time HENMT: COMMON NORMALS: normocephalic, atraumatic and Normal external nose present HEAD & SCALP: normal to inspection, normocephalic and atraumatic FACE & SINUS IMAGES: 1. swelling noted; does not extend past mandible; no fluctuance or overlying erythema/warmth noted NOSE: Normal external nose present MOUTH: Normal oral and palatal mucosa present, lip normal and tongue normal TEETH & GINGIVA IMAGES: 1. severely decayed molar; gingival edema noted without any obvious abscess formation at this time THROAT: posterior oropharynx normal, tonsils normal and uvula midline Eye: GENERAL EYE: appearance normal, both eyes and all related structures Neck/C-Spine: COMMON NORMALS: full ROM, no lymphadenopathy and no meningeal signs GENERAL: Yes normal visual inspection, No anterior neck swelling and No submandibular swelling Resp: COMMON NORMALS: normal respiratory effort Cardio: COMMON NORMALS: regular rate and regular rhythm RATE: regular rate RHYTHM: regular rhythm Neuro: COMMON NORMALS: patient oriented x3 SENSORIUM/ORIENTATION: Yes alert, Yes oriented to person, Yes oriented to place and Yes oriented to time MENINGEAL SIGNS: Yes no meningeal signs Course Vital Signs: Vital signs: Vital Signs Temperature 98.1 F 01/26/23 09:16 Pulse Rate 75 01/26/23 09:16 Respiratory Rate 18 01/26/23 11:39 Blood Pressure 136/83 01/26/23 09:16 Pulse Oximetry 100 01/26/23 09:16 Oxygen Delivery Me thod Room Air 01/26/23 09:16 MDM - Dental/Oral Medical Decision Making No obvious drainable abscess at this time. Patient will be placed on antibiotics and recommend prompt follow-up with her dentist. Strict return ED precautions given. Discharge Plan Discharge Patient Disposition: Home Clinical Impression: Dental abscess Condition: Stable Prescriptions: New Peridex 0.12 % mouthwash 15 ml buccal BID Qty: 473 0RF Rx Instructions: Swish in mouth 1-2 minutes BID then spit penicillin V potassium 500 mg tablet 500 mg PO Q8H 7 Days Qty: 21 0RF No Action albuterol sulfate [ProAir HFA] 90 mcg/actuation HFA aerosol inhaler 2 puff INHALATION Q6H PRN (Reason: shortness of breath or wheezing) Qty: 8.5 0RF epinephrine [EpiPen 2-Philip] 0.3 mg/0.3 mL auto-injector 0.3 mg IM Q4H PRN (Reason: anaphylaxis) Qty: 2 0RF allera hives PO Lactoprime plus PO quercetin 500 mg capsule PO vegan multi vitamin PO Mounjaro 5 mg/0.5 mL pen injector 7.5 mg SUBCUT .weekly 30 Days Qty: 2 1RF cyanocobalamin (vitamin B-12) 1,000 mcg/mL kit 1,000 mcg IM .monthy 30 Days Qty: 1 5RF hydrochlorothiazide 25 mg tablet 25 mg PO DAILY 90 Days Qty: 90 0RF EpiPen 0.3 mg/0.3 mL auto-injector 0.3 mg IM Q10M PRN (Reason: allergic reaction) Qty: 2 0RF Rx Instructions: for 2 doses Discharge Orders: Discharge ED (Routine); Ordered 01/26/23 Ordered By: Mabel Wyman Referrals: Gifty Villalobos FNP [Primary Care Provider] - Patient Instructions: Dental Abscess (ED) Activity Restrictions/Additional Instructions: Please follow up with dentist as soon as possible. Return to ED for worsening swelling, any trouble swallowing/breathing, neck swelling, fevers or any other concerns you may have. Coding Level of Care Code ED Gate Cutter for Miles Sofia
[2023-01-26 11:39] VITALS: RESP 18
== END 2023-01-26 11:41 | disposition home or self-care (01) ==
PROVIDERS: Emergency Provider Physician Assistant; PCP Registered Nurse
DX: K04.7 Periapical abscess without sinus (principal)
CPT/HCPCS: 99283

== ENCOUNTER 2023-02-21 16:53 | Emergency (ER) | payer BC, SELFPAY ==
[2023-02-21 17:05] VITALS: BP 129/82; PULSE 64; RESP 16; TEMP 36.4; O2SAT 99
--- NOTE | 2023-02-21 18:23 | ED_ITS ---
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 Patient had eaten something which most likely had byproducts of red meat in it. Patient started having nausea and hives. Patient used her epinephrine pen. Patient reports relief of hives and some improvement of 6 gastric distress since arriving to the ER. No hives were noted on exam. Respirations were even. Associated symptoms: Reports nausea Review of Systems General: Reports: 10 or more systems reviewed and unremarkable except in HPI and below GI: Reports: nausea Skin/Breast: Reports: rash PFSH ED PFSH: Family History Grandfather Diabetes Hypertension Grandmother Hypothyroidism paternal Denies family history of CAD (coronary artery disease) Chronic kidney disease (CKD) Lung disease Cancer Stroke Social History Smoking and tobacco status: never smoked Alcohol intake: never Substance/Drug Use: never Adopted: No Caregiver/support person: No Lives independently: Yes service: No Current occupational status: employed Sexually active: Yes Do you think of yourself as: Straight/Heterosexual Current gender identity: Female Physical Exam Const: COMMON NORMALS: alert HENMT: COMMON NORMALS: normocephalic HEAD & SCALP: normocephalic Neck/C-Spine: COMMON NORMALS: full ROM Resp: COMMON NORMALS: normal respiratory effort Cardio: COMMON NORMALS: regular rate RATE: regular rate GI: COMMON NORMALS: non-tender Back/Pelvis: COMMON NORMALS: thoracic and lumbar spine normal to inspection Extremity: COMMON NORMALS: normal to inspection Neuro: SENSORIUM/ORIENTATION: Yes alert Skin: COMMON NORMALS: no rashes or lesions noted and turgor normal GENERAL SKIN EXAM: no rashes or lesions noted and turgor normal Course Vital Signs: Vital signs: Vital Signs Temperature 97.5 F L 02/21/23 17:05 Pulse Rate 64 02/21/23 17:05 Respiratory Rate 16 02/21/23 17:05 Blood Pressure 129/82 02/21/23 17:05 Pulse Oximetry 99 02/21/23 17:05 Oxygen Delivery Me thod Room Air 02/21/23 17:05 MDM - Allergic Reaction Medical Decision Making 33-year-old female comes in today for complaints of reaction to food product. Patient does have a history of allergies to alpha?gal. On exam lungs are clear to auscultation. No rash was noted. Posterior pharynx was normal. Vital signs were normal. Differential diagnosis includes anaphylaxis, allergic reaction, food allergy, urticaria. Patient resolution of symptoms and no recurrence 2 hours after injection. Patient also take famotidine and Benadryl. Recommend continuation with oral medications monitoring for worsening symptoms return as needed. Patient reported understanding and agreed to plan. 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,3-galactose Allergic reaction Qualifiers: Encounter type: initial encounter Qualified Code(s): T78.40XA - Allergy, unspecified, initial encounter Condition: Stable Prescriptions: No Action albuterol sulfate [ProAir HFA] 90 mcg/actuation HFA aerosol inhaler 2 puff INHALATION Q6H PRN (Reason: shortness of breath or wheezing) Qty: 8.5 0RF epinephrine [EpiPen 2-Philip] 0.3 mg/0.3 mL auto-injector 0.3 mg IM Q4H PRN (Reason: anaphylaxis) Qty: 2 0RF allera hives PO Lactoprime plus PO quercetin 500 mg capsule PO vegan multi vitamin PO Mounjaro 5 mg/0.5 mL pen injector 7.5 mg SUBCUT .weekly 30 Days Qty: 2 1RF cyanocobalamin (vitamin B-12) 1,000 mcg/mL kit 1,000 mcg IM .monthy 30 Days Qty: 1 5RF hydrochlorothiazide 25 mg tablet 25 mg PO DAILY 90 Days Qty: 90 0RF Peridex 0.12 % mouthwash 15 ml buccal BID Qty: 473 0RF Rx Instructions: Swish in mouth 1-2 minutes BID then spit EpiPen 0.3 mg/0.3 mL auto-injector 0.3 mg IM Q10M PRN (Reason: allergic reaction) Qty: 2 0RF Rx Instructions: for 2 doses Discharge Orders: Discharge ED (Routine); Ordered 02/21/23 Ordered By: Steven Oliveira Referrals: Gifty Villalobos FNP [Primary Care Provider] - Discharge Diet: Usual diet Discharge Activity: Increase activity as tolerated Patient Instructions: General Allergic Reaction (ED) Activity Restrictions/Additional Instructions: Continue with routine care. Return to ED for new concerns. Coding Level of Care Code ED Director Of Exhibit Development for Miles Sofia
[2023-02-21 18:41] VITALS: PULSE 63; O2SAT 99
== END 2023-02-21 18:42 | disposition home or self-care (01) ==
PROVIDERS: Emergency Provider Nurse Practitioner Family; PCP Registered Nurse
DX: T78.1XXA Other adverse food reactions, not elsewhere classified, initial encounter (principal); Z91.014 Allergy to mammalian meats; X58.XXXA Exposure to other specified factors, initial encounter
CPT/HCPCS: 99282

== ENCOUNTER → 2023-03-06 11:07 | Outpatient (BNVA) | payer BC, SELFPAY | PROVIDERS: PCP Registered Nurse; Visit Provider Registered Nurse | DX: R73.03 Prediabetes (principal); I10 Essential (primary) hypertension; E66.01 Morbid (severe) obesity due to excess calories; Z68.42 Body mass index [BMI] 45.0-49.9, adult | CPT/HCPCS: 80053; 83036 ==